=== PATIENT | male | born 1985 | race Caucasian/White ===

== ENCOUNTER 2022-08-19 07:28 | Day surgery (SDC) | payer MEDICAID ==
[2022-08-19] MEDS ORDERED: fentaNYL 100 MCG/2 ML SDV ONE (07:41)
[2022-08-19] MEDS ORDERED: Midazolam 1 MG/ML 2 ML SDV ONE (07:41)
[2022-08-19] MEDS ORDERED: Propofol 200 MG/20 ML SDV ONE (07:41)
[2022-08-19] MEDS ORDERED: Sodium Chloride 0.9% 1,000 ML IV SCH (08:00)
== END 2022-08-19 10:56 | disposition home or self-care (01) ==
LOC: JP.SDS 07:28
PROVIDERS: ATTEND Surgery
DX: K63.5 Polyp of colon (principal); K21.9 Gastro-esophageal reflux disease without esophagitis; Z79.899 Other long term (current) drug therapy
CPT/HCPCS: 88305; J2250; J2704; J3010; J7030